=== PATIENT | female | born 1935 | race Caucasian/White ===

== ENCOUNTER 2021-01-20 18:11 | Emergency (ER) | payer BC ==
[~2021-01-20] VITALS: Ht 167.6 cm; Wt 63.5 kg
--- NOTE | 2021-01-20 18:22 | NUR ---
The patient is bibra89, from home, c/o abd pain since this morning around 8am, -nausea/vomiting and diarrhea. Abdomen soft and non-distended. Attached to the monitor. Warm blanket provided for comfort. Will continue to monitor the patient.
--- NOTE | 2021-01-20 18:35 | NUR ---
BLOOD SPECIMEN COLLECTED AND SENT TO THE LAB
--- NOTE | 2021-01-20 18:35 | NUR ---
URINE COLLECTED AND SENT TO THE LAB
[2021-01-20 18:37] LABS: HEMOGLOBIN 13.1 g/dL (11.5-14.8); MEAN CORPUSCULAR HGB CONC 32 g/dl (31.0-36.0); RED BLOOD CELL COUNT(AUTO) 4.04 MIL/uL (4.0-5.2)
--- NOTE | 2021-01-20 18:45 | NUR ---
THE PATIENT IS TAKEN TO CT
[2021-01-20 18:49] LABS: BASOPHILS # (AUTO) 0.1 K/uL (0.0-0.2); BASOPHILS % (AUTO) 0.7 % (0.0-2.0); EOSINOPHILS % (AUTO) 0.2 % (0.0-6.0); HEMATOCRIT 40 % (33-45); LYMPHOCYTES % (AUTO) 8.9 % (20.0-44.0); MEAN CORPUSCULAR VOLUME 100 fL (82-100); MONOCYTES # (AUTO) 0.5 K/uL (0.1-1.30); MONOCYTES % (AUTO) 4.2 % (2.0-12.0); NEUTROPHILS # (AUTO) 9.6 K/uL (1.8-8.9); PLATELET COUNT (AUTO) 307 K/uL (150-450); WHITE BLOOD COUNT (AUTO) 11.2 K/uL (4.3-11.0)
[2021-01-20 18:51] LABS: CALCIUM, SERUM 9.2 mg/dL (8.5-10.1); CREATININE 0.8 mg/dL (0.6-1.3); POTASSIUM 3.6 mmol/L (3.5-5.1)
[2021-01-20 18:56] LABS: BILIRUBIN,DIRECT 1.2 mg/dL (0.0-0.2); BILIRUBIN,TOTAL 1.8 mg/dL (0.2-1.0); TOTAL PROTEIN, SERUM 7.9 g/dL (6.4-8.2)
--- NOTE | 2021-01-20 18:58 | NUR ---
THE PATIENT IS BACK FROM CT
[2021-01-20 19:07] LABS: BILIRUBIN,URINE Negative (NEGATIVE); COLOR,URINE YELLOW (YELLOW); LEUKOCYTE ESTERASE ,URINE Trace (NEGATIVE); NITRITE, URINE Positive (NEGATIVE); PROTEIN,URINE Negative (NEGATIVE); UGLUCOSE Negative (NEGATIVE)
[2021-01-20 19:16] LABS: BACTERIA,URINE 2+ /HPF (None Seen); RBC,URINE NONE SEEN /HPF (0-2); SQUAMOUS EPITHELIAL CELL,UR Few /HPF (None Seen)
--- NOTE | 2021-01-20 19:20 | NUR ---
REPORT GIVEN TO NURSE MEDINA
[2021-01-20 19:36] VITALS: BP 135/97
--- NOTE | 2021-01-20 19:36 | NUR ---
Patient does not wish to proceed with medical care recommended by Dr. Cardozo. Patient given information related to possible complications, up to and including , which could occur as a result of leaving the hospital at this time. Patient verbalizes understanding of risks involved due to leaving against medical advice. Patient has signed AMA form.
--- NOTE | 2021-01-20 19:42 | NUR ---
IV removed. Catheter intact and site benign. Pressure and 4x4 applied to site. No bleeding noted.
== END 2021-01-20 19:43 | disposition home or self-care (01) ==
LOC: ER 18:16
DX: R10.11 Right upper quadrant pain (principal); Z53.29 Procedure and treatment not carried out because of patient's decision for other reasons; I10 Essential (primary) hypertension
CPT/HCPCS: 36415; 80048-TC; 80076-TC; 81001; 83690-TC; 85025-TC; 87086-TC; 87186-TC